=== PATIENT | male | born 1985 | race Two or more races ===

== ENCOUNTER 2023-05-26 20:34 | Emergency (ER) | payer OTHER | END 2023-05-26 21:27 | disposition left against medical advice (07) | LOC: MED 20:34 | DX: M79.606 Pain in leg, unspecified (principal); Z53.21 Procedure and treatment not carried out due to patient leaving prior to being seen by health care provider ==

== ENCOUNTER 2023-09-30 15:22 | Emergency (ER) | payer OTHER ==
[~2023-09-30] VITALS: Ht 185.4 cm; Wt 79.4 kg
[2023-09-30 15:25] VITALS: BP 103/63; PULSE 83; RESP 19; TEMP 97.5; O2SAT 96
[2023-09-30] MEDS ORDERED: IBUP-2213 PO (16:31)
[2023-09-30] MEDS ORDERED: ONDA-188 SL (16:31)
[2023-09-30] MEDS ORDERED: BENZ100C6 PO (16:31)
[2023-09-30] MEDS: IBUPROFEN 600 MG TAB PO ONE (16:34)
[2023-09-30] MEDS: ONDANSETRON 4 MG ODT PO ONE (16:35)
[2023-09-30 17:42] LABS: FLU A ANTIGEN POSITIVE (NEGATIVE); FLU B ANTIGEN NEGATIVE (NEGATIVE)
[2023-09-30] MEDS ORDERED: TAM75 PO (17:47)
== END 2023-09-30 16:54 | disposition home or self-care (01) ==
LOC: MED 15:22
DX: J10.1 Influenza due to other identified influenza virus with other respiratory manifestations (principal); Z20.822 Contact with and (suspected) exposure to COVID-19; Z79.899 Other long term (current) drug therapy; Z79.1 Long term (current) use of non-steroidal anti-inflammatories (NSAID)
CPT/HCPCS: 87426; 87804; 99283; Q0162